=== PATIENT | female | born 1990 | race Caucasian/White ===

== ENCOUNTER 2022-07-07 19:00 | Inpatient (IN) | payer MEDICAID, SELFPAY ==
[2022-07-07] MEDS ORDERED: Methylergonovine 0.2 MG/ML VIAL IM PRN (23:16)
[2022-07-07] MEDS ORDERED: Misoprostol 200 MCG TAB PR PRN (23:16)
[2022-07-07] MEDS ORDERED: Ondansetron PF 4 MG/2 ML Vial IVP PRN (23:16)
[2022-07-07] MEDS ORDERED: Promethazine HCl 25 MG/ML VIAL IM PRN (23:16)
[2022-07-07] MEDS ORDERED: hydrALAZINE 20 MG/ML VIAL SLOW IVP PRN (23:16)
[2022-07-07] MEDS ORDERED: Ibuprofen 800 MG TAB PO PRN (23:16)
[2022-07-07] MEDS ORDERED: Lidocaine 1% (PF) 30 ML VIAL SC PRN (23:16)
[2022-07-07] MEDS ORDERED: Lactated Ringer's 1,000 ML IV SCH (23:30)
[2022-07-07] MEDS ORDERED: NS w/ Oxytocin 30 units 500 ML IV SCH ×2 (23:30)
[2022-07-07 23:43] VITALS: BMI 29.3
[2022-07-07 23:58] LABS: Hemoglobin 13.4 g/dL (12.0-15.5); Mean Corpuscular HGB CONC 35.9 g/dL (32.0-36.0); Mean Corpuscular Hemoglobin 32.7 pg (27.0-33.0); Mean Platelet Volume 11.1 fl (7.4-10.4); Platelet Count 173 10x3/uL (150-450); RBC Distribution Width 13.2 % (11.5-14.5); White Blood Cell (WBC) Count 6.8 10x3/uL (3.5-10.5)
[2022-07-08 00:27] LABS: SARS-CoV-2 NAA Rapid Test Not Detected (NotDetected)
[2022-07-08 00:30] LABS: HBSAg Index 0.16 S/CO (0-0.99); Hep B Surf Ag Non-Reactive S/CO (NonReactive)
[2022-07-08 00:31] LABS: Syphilis Antibody Nonreactive (Nonreactive); Syphilis Antibody Index 0.11 S/CO (<1.00 Non-Reactive)
[2022-07-08] MEDS: Butorphanol Tartrate 1 MG/ML VIAL ONE ×2 (01:15→01:16)
[2022-07-08] MEDS ORDERED: Butorphanol Tartrate 1 MG/ML VIAL SLOW IVP SCH (01:45)
[2022-07-08] MEDS ORDERED: Milk Of Magnesia 30 ML UDCUP PO PRN (05:15)
[2022-07-08] MEDS ORDERED: Misoprostol 200 MCG TAB VAG PRN (05:15)
[2022-07-08] MEDS ORDERED: NS w/ Oxytocin 30 units 500 ML IV SCH (05:15)
[2022-07-08] MEDS ORDERED: Boostrix 0.5 ML (Tdap) VIAL (>/=7 yrs of age) IM ONE (05:15)
[2022-07-08] MEDS ORDERED: Bisacodyl 10 MG SUPP PR PRN (05:15)
[2022-07-08] MEDS ORDERED: hydrALAZINE 20 MG/ML VIAL SLOW IVP PRN (05:15)
[2022-07-08] MEDS ORDERED: Methylergonovine 0.2 MG/ML VIAL IM PRN (05:15)
[2022-07-08] MEDS ORDERED: Ondansetron PF 4 MG/2 ML Vial IVP PRN (05:15)
[2022-07-08] MEDS: Ibuprofen 800 MG TAB PO SCH ×3 (05:43→21:03)
[2022-07-08] MEDS: Prenatal Vitamin 1 TAB PO SCH (09:05)
[2022-07-08] MEDS: Docusate 100 MG CAP PO SCH ×2 (09:05→21:04)
[2022-07-08] MEDS: Ferrous Sulfate 325 MG TAB PO SCH ×2 (09:05→17:32)
[2022-07-08] MEDS ORDERED: Acetaminophen 325 MG TAB PO PRN (17:08)
[2022-07-09] MEDS: Ibuprofen 800 MG TAB PO SCH ×2 (05:42→15:38)
[2022-07-09] MEDS: Docusate 100 MG CAP PO SCH (08:28)
[2022-07-09] MEDS: Prenatal Vitamin 1 TAB PO SCH (08:28)
[2022-07-09] MEDS: Ferrous Sulfate 325 MG TAB PO SCH (08:29)
[2022-07-09 08:50] VITALS: BP 96/50; TEMP 98
== END 2022-07-09 19:15 | disposition home or self-care (01) | DRG 807 ==
LOC: CSHLD 22:35 → CSHPED 07-08 06:19
PROVIDERS: ADMIT Obstetrics & Gynecology; ATTEND Obstetrics & Gynecology
PROC: 10E0XZZ Delivery of Products of Conception, External Approach (ICD-10-PCS; principal; 2022-07-08)
DX: O71.82 Other specified trauma to perineum and vulva (principal); Z37.0 Single live birth; Z3A.40 40 weeks gestation of pregnancy; Z20.822 Contact with and (suspected) exposure to COVID-19
CPT/HCPCS: 36415; 85027; 86780; 86850; 86900; 86901; 87340; 99285; J0595; J2590; J7120; U0002